=== PATIENT | male | born 1985 | race African-American/Black ===

== ENCOUNTER 2017-04-18 05:54 | Inpatient (IN) | payer OTHER ==
[~2017-04-18] VITALS: Ht 190.5 cm; Wt 113.4 kg
--- NOTE | ~2017-04-18 | HP ---
Unit #: [id number] #: [id number] Patient: RAQUEL ELAINE [id number] [facility]. [place], [place] [address] [id number] I MR#: [id number] NAME: RAQUEL ELAINE ROOM: 216 Age: 31 Sex: M Admission Date: 04/18/2017 : 1985 Attending Physician: Doug Christy M.D. Primary Care Physician: No Primary Care Physician HISTORY AND PHYSICAL CHIEF COMPLAINT Abdominal pain. HISTORY OF PRESENT ILLNESS The patient is a 31-year-old male who presents to [facility] Emergency Department secondary to some abdominal pain. Symptoms began several days prior but have been progressive and are now constant. He describes them as severe. Described as sharp in the lower quadrants. The patient denies fevers, nausea, vomiting, and diarrhea. No alleviating factors at this time. CT of the abdomen with contrast shows diverticulitis and abdominal fluid collection. PAST MEDICAL HISTORY None. PAST SURGICAL HISTORY None. SOCIAL HISTORY The patient is a diesel truck mechanic, smokes occasionally, drinks alcohol occasionally. Denies illicit drug use. FAMILY HISTORY Diabetes. ALLERGIES No known drug allergies. HOME MEDICATIONS None. REVIEW OF SYSTEMS A 10-point review of systems obtained and negative except as per HPI. PHYSICAL EXAMINATION VITAL SIGNS: Temperature 98.5, pulse 75, blood pressure 126/85. GENERAL: A 31-year-old male in no acute distress, appears stated age. HEENT: Pupils equally round. Extraocular movements intact. Mucous membranes dry. NECK: Supple. No JVD, lymphadenopathy. CARDIAC: Regular rate and rhythm. No murmurs, gallops, or rubs. LUNGS: Clear to auscultation bilaterally. ABDOMEN: Diffusely tender to palpation in the lower quadrants bilaterally. Soft, nondistended. Unit #: [id number] #: [id number] Patient: RAQUEL ELAINE EXTREMITIES: No clubbing, cyanosis, or edema. Warm and dry. PSYCHIATRIC: Alert and oriented x3. Affect is appropriate. NEUROLOGIC: Cranial nerves II-XII are intact grossly. Patient moves all extremities equally and with purpose. SKIN: No rash, bruise, or ulcer. MUSCULOSKELETAL: No evidence of joint pain. No evidence of joint swelling. DIAGNOSTIC STUDIES LABORATORY: Chemistries are normal. CBC is essentially normal. White count is normal. ASSESSMENT AND PLAN 1. Diverticulitis: The patient has been started on Zosyn and Flagyl which I will continue. 2. Abdominal fluid collection: CT characterization fails to clearly classify it as an abscess. [facility] has been consulted. 3. Prophylaxis: The patient has been started on Lovenox. Dictated by Ramiro Leonard/carleen TD: 04/18/2017 17:06 JOB #: [id number] HISTORY AND PHYSICAL Page 1 of 1 X Doug Christy MD X HISTORY AND PHYSICAL
--- NOTE | ~2017-04-18 | CT2 ---
[facility] A Service of [facility] & [facility] RADIOLOGY TEXT RESULTS PATIENT: RAQUEL ELAINE LOCATION: C2A 216-01 : 84 UNIT #: [id number] AGE: [address]: Alexandria Kimball MD SEX: M ORDER DR: [id number] [facility] [address] [facility]. [place], [place] [address] [id number] I MR#: [id number] Acc #: [id number] NAME: RAQUEL ELAINE : 1985 SEX: M STUDY DATE/TIME: 04/20/2017 11:59 UNIT: C2A ROOM: 216 STUDY DESCRIPTION: CT Abd and Pelv W Cont Attending Physician: Alexandria Kimball M.D. Ordering Physician: Maximo Valadez M.D. Primary Care Physician: No Primary Care Physician MEDICAL IMAGING REPORT This report is preliminary unless electronic signature is present EXAM CT abdomen and pelvis with contrast 04/20/2017 HISTORY A 31-year-old male with lower abdomen and pelvic pain since 04/17/2017. Acute sigmoid diverticulitis on CT examination 04/18/2017. Exam today for followup. TECHNIQUE CT examination of the abdomen and pelvis with oral and IV contrast. This CT exam was performed with one or more of the following radiation dose reduction techniques: automatic exposure control, adjustment of mA and/or kV according to patient size, and iterative reconstruction. FINDINGS Abdomen: Mild acute diverticulitis changes involving the upper sigmoid colon within the left lateral mid pelvis remain present, unchanged since 04/18/2017. No evidence of drainable abscess, bowel perforation or bowel obstruction. Mild diverticulosis in the sigmoid and lower descending colon. Remaining segments of small bowel and colon are normal in caliber and appearance. The appendix is normal. Liver, pancreas, spleen and kidneys are within normal limits. Nondistended gallbladder. No bile duct dilatation. Pelvis: Bladder, prostate and rectum are within normal limits. No inguinal hernia. Limited lung base images show no active disease in the lower chest. IMPRESSION 1. Mild acute diverticulitis involving the upper sigmoid colon within [facility] A Service of [facility] & [facility] RADIOLOGY TEXT RESULTS PATIENT: RAQUEL ELAINE LOCATION: [facility] 216-01 : 84 UNIT #: [id number] AGE: [address]: Alexandria Kimball MD SEX: M ORDER DR: the left lateral mid pelvis, unchanged since 04/18/2017. 2. No evidence of abscess, bowel perforation, bowel obstruction or additional complicating feature. 3. Remainder of the examination is negative. The appendix is normal. Dictated by... Rachid Santacruz M.D. THIS IS AN ELECTRONICALLY VERIFIED REPORT Rachid Santacruz M.D. at 04/20/2017 10:02 PM GUNJAN/dimitris TD: 04/20/2017 20:54 JOB #: [id number] MEDICAL IMAGING REPORT Page 1 of 1 COPY
--- NOTE | ~2017-04-18 | CO ---
Unit #: [id number] #: [id number] Patient: RAQUEL ELAINE [id number] [address] [address] [id number] E MR#: [id number] NAME: RAQUEL ELAINE ROOM: Age: 31 Sex: M Admission Date: 04/18/2017 : 1985 Attending Physician: Meagan Chaudhari Pa-C Primary Care Physician: No Primary Care Physician Consultation Date: 04/18/2017 CONSULTATION REPORT REASON FOR CONSULTATION 1. Left lower quadrant pain. 2. Acute diverticulitis. HISTORY OF PRESENT ILLNESS Thank you very much for asking us to see Mr. Elaine. He is a 31-year-old black male who has no past surgical history and past medical history. He developed left lower quadrant pain 36 to 48 hours ago. It worsened and he came to the emergency room for evaluation. It is worse with coughing and with movement. He has had no nausea, vomiting. He denies any GI bleeding. He has had no or pulmonary symptoms. A CT scan was obtained, which revealed inflammatory changes of the distal descending colon and sigmoid colon consistent with acute diverticulitis. There is a 4-cm fluid collection between the sigmoid colon and the bladder, but it did not have the characteristics of an abscess. The patient presents at this time for further evaluation and treatment. ALLERGIES No known medical allergies. MEDICATIONS None. PAST SURGICAL HISTORY None. PAST MEDICAL HISTORY Unremarkable. SOCIAL HISTORY No tobacco or alcohol use. REVIEW OF SYSTEMS Negative, except for above. IMMUNIZATIONS Immunization status is unknown. FAMILY HISTORY Family history is noncontributory. PHYSICAL EXAMINATION GENERAL: Well-developed, well-nourished black male in no apparent distress. Unit #: [id number] #: [id number] Patient: RAQUEL ELAINE VITAL SIGNS: Temperature 98.5, pulse 75, respirations 17, blood pressure 126/85. NEUROLOGIC: Awake, alert and oriented. NECK: Supple. No thyromegaly or adenopathy. BACK: No CVA or spinous tenderness. EYES: Sclera nonicteric. Extraocular movements are intact. ABDOMEN: Flat. Soft. No distention. Tender in the left lower quadrant with some guarding but no rebound, peritoneal signs or masses. EXTREMITIES: No calf tenderness. No erythema. DIAGNOSTIC STUDIES LABORATORY STUDIES: CMP and CBC are normal. IMAGING: CT scan is as mentioned above. IMPRESSION A 31-year-old black male with acute diverticulitis and a fluid collection between the sigmoid colon and the bladder, not consistent with an abscess. As a result, we feel the patient needs to be admitted for IV fluids, clear liquids and IV antibiotics. All has been fully explained to the patient in detail. He understands completely and requests to proceed with the current treatment plan. Dictated by... Ramiro [place]/anne TD: 04/18/2017 12:23 JOB #: [id number] CONSULTATION REPORT Page 1 of 1 X Maximo Valadez MD X CONSULTATION REPORT
--- NOTE | ~2017-04-18 | DS ---
Unit #: [id number] #: [id number] Patient: RAQUEL ELAINE [id number] [facility]. [place], [place] [address] [id number] I MR#: [id number] NAME: RAQUEL ELAINE ROOM: 216 Age: 31 Sex: M Admission Date: 04/18/2017 : 1985 Discharge Date: 04/22/2017 Attending Physician: Alexandria Kimball M.D. DISCHARGE SUMMARY DIAGNOSES ON ADMISSION Abdominal pain and acute diverticulitis. DIAGNOSIS ON DISCHARGE Acute diverticulitis, improved. CONSULTATION Dr. Samuel Lucas in surgical consultation. DIAGNOSTIC STUDIES LABORATORY: Creatinine is 1.3, sodium is 137, and potassium is 4.3. WBC 6.4, hemoglobin 14.3, and platelet count is 266,000. IMAGING: CT scan of the abdomen and pelvis revealed mild acute diverticulitis. No evidence of abscess, bowel perforation, or bowel obstruction. HOSPITAL COURSE A 31-year-old male was admitted to [facility] with abdominal pain. Details are as per admission History and Physical. Patient was diagnosed with acute diverticulitis and was treated with IV antibiotics. Patient was seen by Dr. Lucas in consultation. Patient's condition has gradually improved, and he has tolerated diet well. Patient was advised by Dr. Lucas to follow up with his doctor in [place] where he lives and have a colonoscopy done in two to three weeks. Patient is comfortable today and is anxious to go home. DISCHARGE MEDICATIONS 1. Percocet 7.5 mg 1 p.o. q.4 hours p.r.n., #24 dispensed. Prescription was written by Dr. Samuel Lucas. 2. Augmentin 875 mg 1 p.o. b.i.d. for 10 days. 3. Flagyl 500 mg 1 p.o. b.i.d. for 10 days. FOLLOWUP Patient is advised to follow up with primary care physician in one week and have a CBC and BMP done. Patient is advised to be off work until seen by primary care physician. Patient states that his primary care physician is in [place]. Patient is advised to call primary care physician or go to ER if his condition changes. The plan was discussed in detail with patient who showed complete Unit #: [id number] #: [id number] Patient: RAQUEL ELAINE. Dictated by... Ramiro Lockhart TD: 04/22/2017 16:09 JOB #: [id number] CC: Samuel Lucas M.D. DISCHARGE SUMMARY Page 1 of 1 X Viridiana Acharya MD X DISCHARGE SUMMARY
--- NOTE | ~2017-04-18 | CT2 ---
[facility] A Service of [facility] & [facility] RADIOLOGY TEXT RESULTS PATIENT: RAQUEL ELAINE LOCATION: C2A 216-01 : 84 UNIT #: [id number] AGE: [address]: Alexandria Kimball MD SEX: M ORDER DR: [id number] [facility] [address] [place], [place] [address] [id number] I MR#: [id number] Acc #: [id number] NAME: RAQUEL ELAINE : 1985 SEX: M STUDY DATE/TIME: 04/18/2017 09:01 UNIT: C2A ROOM: 216 STUDY DESCRIPTION: CT Abd and Pelv W Cont Attending Physician: Alexandria Kimball M.D. MEDICAL IMAGING REPORT This report is preliminary unless electronic signature is present EXAM CT abdomen and pelvis with contrast 04/18/2017 0901 hours HISTORY 31-year-old man complaining of lower abdominal pain for 1 day. COMPARISON None. TECHNIQUE Dynamic helical CT images were obtained from the lung bases through the pubic symphysis with intravenous contrast. Isovue-370 100 mL IV. Sagittal and coronal reconstructions were performed. Total exam DLP 835 mGy-cm. This CT examination was performed with one or more of the following radiation dose reduction techniques: automatic exposure control, adjustment of mA and/or kV according to patient size, and iterative reconstruction. FINDINGS Images through the lung bases are clear. There is no pleural fluid or pleural thickening. The distal esophagus is normal. Postcontrast images through the abdomen demonstrate a vague low-density lesion in the posterior dome of the liver measuring 8 mm likely a cyst or small hemangioma. Liver is otherwise normal. The spleen, pancreas, gallbladder, bile ducts and adrenal glands are normal. The kidneys are enhanced normally. There is no mass, stone or obstruction. There is no ureterectasis or ureteral calculus. The abdominal aorta is normal in caliber and normally opacified. The unopacified stomach and small bowel are normal. The appendix is well seen and normal. There is moderate stool throughout the colon. There are a few diverticula of the distal descending colon and sigmoid colon. There [facility]. [facility] A Service of [facility] & [facility] RADIOLOGY TEXT RESULTS PATIENT: RAQUEL ELAINE LOCATION: C2A 216-01 : 84 UNIT #: [id number] AGE: [address]: Alexandria Kimball MD SEX: M ORDER DR: is a segment of wall thickening at the junction of descending colon and sigmoid colon with surrounding injection of the adjacent fat suggesting acute diverticulitis. There is a fluid collection posterior and inferior to the sigmoid colon sitting superior to the dome of the bladder measuring 4.2 x 3.0 x 4 cm. This does not have a perceptible wall and does not appear to represent an abscess at this time. IMPRESSION 1. Patient has diverticulosis of the distal descending colon and sigmoid colon with acute wall thickening and ground-glass change at the junction of descending colon and sigmoid colon most consistent with acute diverticulitis. There is a fluid collection inferior to the sigmoid colon superior to the dome of the bladder measuring 4.2 x 3.0 x 4.0 cm. This does not have a defined or enhancing wall and therefore does not likely represent an abscess at this time but attention on follow up is recommended. 2. Vague, benign less than 1 cm low-density lesion in the dome of the liver. Given the patient's age and its low attenuation, no further evaluation is required. Dictated by... Ermelinda Han M.D. THIS IS AN ELECTRONICALLY VERIFIED REPORT Ermelinda Han M.D. at 04/19/2017 2:31 PM MARISSA/anny TD: 04/18/2017 10:42 JOB #: [id number] MEDICAL IMAGING REPORT Page 1 of 1 COPY
[2017-04-18 06:30] LABS: BASOPHIL# 0.1 X10e3 (0-0.3); BASOPHIL% 0.6 % (0-2.5); EOSINOPHIL# 0.2 X10e3 (0-0.7); EOSINOPHIL% 2.6 % (0.0-7.0); HEMATOCRIT 44.7 % (38.0-50.0); HEMOGLOBIN 14.6 gm/dL (13.0-16.0); LYMPHOCYTE# 2.5 X10e3 (1.0-3.5); LYMPHOCYTE% 29.9 % (17.0-45.0); MEAN CELL VOLUME 81.4 FL (83-96); MEAN CORPUSCULAR HEMOGLOBIN 26.7 PG (28-34); MEAN CORPUSCULAR HGB CONC 32.8 g/dL (30-36); MEAN PLATELET VOLUME 7.5 FL (6.5-11.5); MONOCYTE# 0.9 X10e3 (0-1.0); MONOCYTE% 11.3 % (3.0-12.0); NEUTROPHIL# 4.7 X10e3 (1.5-7.1); NEUTROPHIL% 55.6 % (40-75); PLATELET COUNT 255 X10e3 (140-420); RED BLOOD COUNT 5.49 X10e (3.90-5.60); RED CELL DISTRIBUTION WIDTH 15.2 % (11.0-15.5); WHITE BLOOD COUNT 8.4 X10e3 (4.0-10.5)
[2017-04-18 06:32] LABS: DIFF IND NO
[2017-04-18 06:33] LABS: URINE SOURCE CLEAN CATCH
[2017-04-18 06:37] LABS: URINE APPEARANCE CLEAR; URINE BILIRUBIN NEG (NEG); URINE BLOOD NEG (NEG); URINE COLOR YELLOW; URINE GLUCOSE NEG (NEG); URINE KETONE NEG (NEG); URINE LEUKOCYTE ESTERASE NEG (NEG); URINE NITRATE NEG (NEG); URINE PH 5.5 (5-8); URINE PROTEIN NEG (NEG); URINE SPECIFIC GRAVITY 1.024 (1.003-1.035); URINE UROBILINOGEN 0.2 MG/DL (NEG)
[2017-04-18 06:46] LABS: POC - CKMB 2.4 ng/mL (0.0-7.9); POC - TROPONIN <0.05 ng/mL (<=0.05)
[2017-04-18 06:48] LABS: CULTURE INDICATED? NO
[2017-04-18 07:09] LABS: ALBUMIN SERUM 4.1 g/dL (3.5-5.0); ALKALINE PHOSPHATASE 49 U/L (32-92); ALT (SGPT) 32 U/L (10-40); AST (SGOT) 20 U/L (10-42); BILIRUBIN,TOTAL 0.5 mg/dL (0.2-2.0); BLOOD UREA NITROGEN 12 mg/dL (9-23); BUN/CREATININE RATIO 9.23; CARBON DIOXIDE 27 mmol/L (22-31); CHLORIDE 104 mmol/L (100-111); CREATININE SERUM 1.3 mg/dL (0.6-1.4); GLOM FILT RATE Estimated 72.2 mL/min (>60); GLUCOSE FASTING 95 mg/dL (70-110); LIPASE 41 U/L (22-51); PROTEIN TOTAL SERUM 6.6 g/dL (6.0-8.3); SODIUM 138 mmol/L (135-145)
[2017-04-18 07:10] LABS: BILIRUBIN, DIRECT <0.1 mg/dL (0.0-0.2); BILIRUBIN,INDIRECT 0.4 mg/dL (0.0-0.9)
[2017-04-18] MEDS ORDERED: NO MEDICATIONS (10:24)
[2017-04-19 07:33] LABS: ALBUMIN SERUM 4.3 g/dL (3.5-5.0); BUN/CREATININE RATIO 5.33; CALCIUM SERUM 9.2 mg/dL (8.4-10.2); CREATININE SERUM 1.5 mg/dL (0.6-1.4); GLOM FILT RATE Estimated 70.4 mL/min (>60); POTASSIUM 4.1 mmol/L (3.5-5.1); PROTEIN TOTAL SERUM 7.3 g/dL (6.0-8.3)
[2017-04-19 07:53] LABS: HEMATOCRIT 47.3 % (38.0-50.0); HEMOGLOBIN 15.1 gm/dL (13.0-16.0); MEAN CELL VOLUME 82.3 FL (83-96); MEAN CORPUSCULAR HEMOGLOBIN 26.3 PG (28-34); MEAN PLATELET VOLUME 7.8 FL (6.5-11.5); RED BLOOD COUNT 5.74 X10e (3.90-5.60); RED CELL DISTRIBUTION WIDTH 15.5 % (11.0-15.5); WHITE BLOOD COUNT 10.2 X10e3 (4.0-10.5)
[2017-04-20 04:45] LABS: HEMATOCRIT 42.5 % (38.0-50.0); HEMOGLOBIN 13.7 gm/dL (13.0-16.0); MEAN CELL VOLUME 81.3 FL (83-96); MEAN CORPUSCULAR HEMOGLOBIN 26.3 PG (28-34); MEAN CORPUSCULAR HGB CONC 32.4 g/dL (30-36); MEAN PLATELET VOLUME 7.7 FL (6.5-11.5); RED BLOOD COUNT 5.23 X10e (3.90-5.60); RED CELL DISTRIBUTION WIDTH 15.4 % (11.0-15.5); WHITE BLOOD COUNT 9.1 X10e3 (4.0-10.5)
[2017-04-21 05:37] LABS: HEMATOCRIT 44.3 % (38.0-50.0); HEMOGLOBIN 14.3 gm/dL (13.0-16.0); MEAN CORPUSCULAR HEMOGLOBIN 26.5 PG (28-34); MEAN CORPUSCULAR HGB CONC 32.3 g/dL (30-36); MEAN PLATELET VOLUME 7.8 FL (6.5-11.5); RED BLOOD COUNT 5.4 X10e (3.90-5.60); RED CELL DISTRIBUTION WIDTH 15.2 % (11.0-15.5); WHITE BLOOD COUNT 6.4 X10e3 (4.0-10.5)
[2017-04-21 06:07] LABS: BUN/CREATININE RATIO 7.69; CALCIUM SERUM 9.1 mg/dL (8.4-10.2); CREATININE SERUM 1.3 mg/dL (0.6-1.4); GLOM FILT RATE Estimated 83.7 mL/min (>60); POTASSIUM 4.3 mmol/L (3.5-5.1)
[2017-04-22] MEDS ORDERED: AUGMENTIN PO (11:07)
[2017-04-22] MEDS ORDERED: FLAGYL PO (11:08)
[2017-04-22] MEDS ORDERED: PERCOCET 7.5-31 EACH PO (11:09)
[2017-04-22] MEDS ORDERED: PAIN & FEVER325 MG PO (11:11)
[2017-04-22] MEDS ORDERED: DOCUSATE SODIU100 MG PO (11:12)
== END 2017-04-22 15:20 | disposition home or self-care (01) | DRG 392 ==
LOC: CED 05:54 → C2A 10:55 → CEDOF 10:55 → C2A 13:00
PROVIDERS: Family Medicine; Internal Medicine
DX: K57.92 Diverticulitis of intestine, part unspecified, without perforation or abscess without bleeding (principal)
CPT/HCPCS: 36415; 74177; 80048; 80053; 80076; 80202; 81003; 82553; 83690; 84484; 85025; 85027; 96361; 96374; 96375; 99285; J1650; J2270; J2405; J2543; J3370; Q9967